=== PATIENT | female | born 1945 | race Caucasian/White ===

== ENCOUNTER 2016-10-09 12:21 | Inpatient (IN) | payer OTHER ==
[~2016-10-09] VITALS: Ht 165.1 cm; Wt 65.8 kg
[~2016-10-09 12:21] MED LIST: BACITRACIN OINT TOPICAL ONE
[2016-10-09] MEDS ORDERED: ACETAMINOPHEN 325 MG TAB PO PRN (14:20)
[2016-10-09] MEDS ORDERED: ALPRAZOLAM 0.25 MG TAB PO PRN (14:20)
[2016-10-09] MEDS ORDERED: BISACODYL 10 MG SUPP RECTAL PRN (14:20)
[2016-10-09] MEDS ORDERED: SALINE FLUSH 10 ML FLUSH PRN (14:20)
[2016-10-09] MEDS ORDERED: BISACODYL EC 5 MG TAB PO PRN (14:20)
[2016-10-09] MEDS ORDERED: MAG HYDROX 30 ML UDC PO PRN (14:20)
[2016-10-09] MEDS ORDERED: ALU/MAG/SIM 30 ML UDC PO PRN (14:20)
[2016-10-09] MEDS ORDERED: ONDANSETRON 4 MG VIAL IV PRN (14:20)
[2016-10-09 15:30] VITALS: BP_SYST 127; BP_SYST 140; RESP 16; TEMP 98.4
[2016-10-09 17:43] VITALS: RESP 16
[2016-10-09] MEDS ORDERED: LORAZEPAM 2 MG/ML VIAL IV PRN (19:20)
[2016-10-09 19:21] VITALS: Ht 165.1 cm; Wt 65.8 kg
[2016-10-09] MEDS: SALINE FLUSH 10 ML FLUSH SCH (20:00)
[2016-10-09 20:39] VITALS: BP_SYST 131; RESP 16; TEMP 98.3
[2016-10-09 23:00] VITALS: BP_SYST 120; RESP 16; TEMP 97.9
[2016-10-10] VITALS (8 sets, daily range): BP systolic 119–145; RESP 16–20; TEMP 98.1–99.1
[2016-10-10] MEDS ORDERED: MORPHINE 4 MG/ML SYR IV PRN (03:55)
[2016-10-10] MEDS: SODIUM CHLORIDE 0.9% 1,000 ML IV SCH ×2 (04:17→20:56)
[2016-10-10] MEDS: SODIUM CHLORIDE 0.9% FLUSH BAG 500 ML IV SCH ×2 (06:00)
[2016-10-10] MEDS: SALINE FLUSH 10 ML FLUSH SCH ×2 (08:00→20:00)
[2016-10-10] MEDS ORDERED: CEFAZOLIN 2,000 MG in SODIUM CHLORIDE 0.9% 100 ML IV ONE (09:05)
[2016-10-10] MEDS: ENOXAPARIN 40 MG/0.4 ML SYR SUBQ SCH (11:12)
[2016-10-10] MEDS: MORPHINE 2 MG/ML SYR IV PRN ×2 (11:12→17:45)
[2016-10-10] MEDS: MORPHINE 4 MG/ML SYR IV PRN (21:15)
[2016-10-11] VITALS (20 sets, daily range): BP systolic 117–166; RESP 13–20; TEMP 97.1–99
[2016-10-11] MEDS: MORPHINE 2 MG/ML SYR IV PRN ×6 (01:09→14:59)
[2016-10-11] MEDS: SODIUM CHLORIDE 0.9% FLUSH BAG 500 ML IV SCH ×2 (06:00)
[2016-10-11] MEDS ORDERED: METOPROLOL 5 MG/5 ML VIAL IV ONE (07:37)
[2016-10-11] MEDS ORDERED: FENTANYL 100 MCG/2 ML AMP IV ONE (07:37)
[2016-10-11] MEDS ORDERED: GLYCOPYRROLATE 0.2 MG/ML VIAL IV ONE ×2 (07:37→10:35)
[2016-10-11] MEDS ORDERED: ONDANSETRON 4 MG VIAL IV PUSH ONE (07:37)
[2016-10-11] MEDS ORDERED: PROPOFOL 20 ML PER ML IV ONE (07:37)
[2016-10-11] MEDS ORDERED: LIDOCAINE 2% SYR 5 ML IV ONE (07:37)
[2016-10-11] MEDS ORDERED: ROCURONIUM 50 MG VIAL IV ONE (07:37)
[2016-10-11] MEDS ORDERED: NEOSTIGMINE 10 MG/10 ML VIAL IV ONE (07:37)
[2016-10-11] MEDS: ENOXAPARIN 40 MG/0.4 ML SYR SUBQ SCH (08:20)
[2016-10-11] MEDS: SALINE FLUSH 10 ML FLUSH SCH ×3 (08:42→20:00)
[2016-10-11] MEDS: SODIUM CHLORIDE 0.9% 1,000 ML IV SCH (09:10)
[2016-10-11] MEDS ORDERED: LIDOCAINE 1% BUFFERED 1 ML SYR INTRADERM PRN (10:35)
[2016-10-11] MEDS ORDERED: LACT RINGERS 1,000 ML IV SCH ×2 (10:35→18:15)
[2016-10-11] MEDS ORDERED: MIDAZOLAM 2 MG/2 ML INJ IV ONE (10:35)
[2016-10-11] MEDS ORDERED: CEFAZOLIN 2,000 MG in SODIUM CHLORIDE 0.9% 100 ML IV ONE (15:30)
[2016-10-11] MEDS ORDERED: REMOVE SCOPALAMINE PATCH XX ONE (16:00)
[2016-10-11] MEDS ORDERED: SCOPOLAMINE PATCH TRANSDERM ONE (16:00)
[2016-10-11] MEDS ORDERED: MORPHINE 4 MG/ML SYR IV PRN (17:40)
[2016-10-11] MEDS ORDERED: DILAUDID 1 MG/ML AMP IV PRN (17:40)
[2016-10-11] MEDS ORDERED: ONDANSETRON 4 MG VIAL IV PRN ×2 (17:40→18:15)
[2016-10-11] MEDS ORDERED: MORPHINE 2 MG/ML SYR IV PRN (17:40)
[2016-10-11] MEDS ORDERED: MEPERIDINE 25 MG/ML IV PRN (17:40)
[2016-10-11] MEDS ORDERED: OXYCODONE 5 MG TAB PO PRN (17:40)
[2016-10-11] MEDS ORDERED: SALINE FLUSH 10 ML FLUSH PRN (18:15)
[2016-10-11] MEDS ORDERED: PROMETHAZINE 25 MG/ML VIAL IM/IV PRN (18:15)
[2016-10-11] MEDS ORDERED: MAG HYDROX 30 ML UDC PO PRN (18:15)
[2016-10-11] MEDS ORDERED: ZOLPIDEM 5 MG TAB PO PRN (18:15)
[2016-10-11] MEDS ORDERED: DILAUDID 1 MG/ML AMP IV ONE (20:00)
[2016-10-11] MEDS: DOCUSATE SOD 100 MG CAP PO SCH (20:16)
[2016-10-11] MEDS: CEFAZOLIN 2,000 MG in SODIUM CHLORIDE 0.9% 100 ML IV SCH (22:54)
[2016-10-12] VITALS (7 sets, daily range): BP systolic 97–137; RESP 18–20; TEMP 97.7–98.7
[2016-10-12] MEDS: MORPHINE 4 MG/ML SYR IV PRN ×2 (01:31→05:14)
[2016-10-12] MEDS: CEFAZOLIN 2,000 MG in SODIUM CHLORIDE 0.9% 100 ML IV SCH ×3 (05:13→16:45)
[2016-10-12] MEDS: Rivaroxaban 10 MG TAB PO SCH (05:14)
[2016-10-12] MEDS: SODIUM CHLORIDE 0.9% FLUSH BAG 500 ML IV SCH ×3 (06:00→06:11)
[2016-10-12] MEDS: SALINE FLUSH 10 ML FLUSH SCH ×4 (08:00→20:11)
[2016-10-12] MEDS: MAG HYDROX 30 ML UDC PO SCH (09:56)
[2016-10-12] MEDS: DOCUSATE SOD 100 MG CAP PO SCH ×2 (09:56→20:44)
[2016-10-13 02:59] VITALS: BP_SYST 118; TEMP 98
[2016-10-13 03:00] VITALS: RESP 20
[2016-10-13] MEDS: SODIUM CHLORIDE 0.9% FLUSH BAG 500 ML IV SCH ×3 (05:11→05:12)
[2016-10-13] MEDS: Rivaroxaban 10 MG TAB PO SCH (05:20)
[2016-10-13 07:10] VITALS: BP_SYST 109; RESP 20; TEMP 97.3
[2016-10-13] MEDS: SALINE FLUSH 10 ML FLUSH SCH (08:41)
[2016-10-13] MEDS: MAG HYDROX 30 ML UDC PO SCH (08:42)
[2016-10-13] MEDS: DOCUSATE SOD 100 MG CAP PO SCH (08:42)
[2016-10-13] MEDS ORDERED: SENNA 8.6 MG TAB PO SCH (09:00)
[2016-10-13] MEDS ORDERED: POLYETHYLENE GLYCOL 17 GM PACKET PO SCH (09:00)
[2016-10-13 11:34] VITALS: BP_SYST 113; RESP 18; TEMP 98
[2016-10-13 12:38] VITALS: BP_SYST 113; RESP 18; TEMP 98
[2016-10-14] MEDS ORDERED: FLEET ENEMA 132 ML BTL RECTAL PRN (08:20)
[2016-10-14] MEDS ORDERED: REMOVE SCOPALAMINE PATCH XX ONE (16:00)
== END 2016-10-13 13:41 | disposition home health service (06) | DRG 481 ==
LOC: ENRESERVTM → ENRESERVDT → ER 13:36 → EMR 14:48 → ENPENDDIS 14:48 → 2NO 16:27
PROVIDERS: ADMIT Family Medicine; ATTEND Family Medicine
PROC: 0QH736Z Insertion of Intramedullary Internal Fixation Device into Left Upper Femur, Percutaneous Approach (ICD-10-PCS; principal; 2016-10-11 16:47)
CPT/HCPCS: 36415; 71010; 76000; 80048; 80053; 85014; 85018; 85025; 85610; 85730; 93005; 94799; 99222; 99232; 99239